=== PATIENT | female | born 1935 | race Caucasian/White ===

== ENCOUNTER → 2017-01-06 | Outpatient (CLI) | payer BC ==
[~2017-01-06] MED LIST: GADAVIST IV PRN
--- NOTE | 2017-01-06 13:59 | DIAGNOSTIC IMAGING REPORT ---
TWO VIEW CHEST CLINICAL HISTORY: Renal cell carcinoma. FINDINGS: PA and lateral chest radiographs are compared to study dated 07/10/2016. Correlation is made with chest CT dated 10/02/2014. The examination is degraded by large body habitus. The heart is enlarged and there is atherosclerotic calcification of the thoracic aorta. The pulmonary vasculature is noncongested. Chronic interstitial thickening is similar to previous. Linear atelectasis versus scarring is present at both lung bases. No airspace consolidation, large pleural effusion, or pneumothorax is seen. There is no radiographic evidence of pulmonary nodule. The skeletal structures are osteopenic. The bony thorax appears intact. IMPRESSION: Cardiomegaly with no acute cardiopulmonary abnormality Electronically signed by: Roberto Knight M.D. 01/06/2017 1:57 PM Dictated Date/Time: 01/06/2017 1:56 PM
--- NOTE | 2017-01-06 15:16 | DIAGNOSTIC IMAGING REPORT ---
MRI OF THE ABDOMEN COMBO CLINICAL HISTORY: Left renal cell carcinoma. COMPARISON STUDY: Abdominal MRI dated 12/25/2015. Abdominal CT dated 01/16/2014. TECHNIQUE: MRI of the abdomen is performed transverse T1 and T2-weighted sequences in the axial and coronal planes. Contrast enhanced sequences were acquired following the IV administration of 10.5 cc of Gadavist. Subtraction imaging was utilized. The examination is significantly degraded by large body habitus. FINDINGS: Lower chest: No pleural effusion is identified. The lung bases are not well-visualized. Liver: The liver is enlarged measuring 20 cm in length. There is diffuse drop in signal on the opposed phase images consistent with hepatic steatosis. Fatty sparing is suggested adjacent to gallbladder fossa. No intrahepatic biliary ductal dilatation is seen. The hepatic veins and portal veins are patent. Gallbladder: Unremarkable. Spleen: Normal as visualized. Pancreas: Atrophic and grossly unremarkable. Adrenal glands: Nodularity of the left adrenal gland is similar to previous. Kidneys: The kidneys are atrophic and without hydronephrosis. Multiple foci of cortical scarring are again seen involving the right kidney. The kidneys enhance symmetrically. There has been modest increase in size of an infiltrative mass lesion involving the upper pole and interpolar region of the left kidney. This measures approximately 9.5 x 9.5 x 5.5 cm in aggregate dimension. This mass lesion extends into the renal vein to within 3.5 cm of the IVC. No enhancing mass lesion is seen in the right kidney. Abdominal aorta: Normal in course and caliber. A focal dissection is identified within the abdominal aorta, best seen on axial image #47. Bowel: Visualized portions of the small bowel and colon show no evidence of obstruction. Peritoneum: There is no abdominal ascites. Lymphadenopathy: No upper abdominal or retroperitoneal lymphadenopathy is identified. Skeletal structures: No destructive bony lesion is seen. IMPRESSION: 1. Modest increase in size of an infiltrative mass lesion involving the left kidney consistent with renal cell carcinoma as compared to the 12/25/2015 examination. 2. 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 This comes to within 3.5 cm of the IVC. 3. No retroperitoneal lymphadenopathy is seen. 4. Multiple foci of cortical scarring are seen in the right kidney. No enhancing right renal lesion is identified. 5. A focal dissection is seen within the infrarenal abdominal aorta. 6. Hepatomegaly and hepatic steatosis. Electronically signed by: Roberto Knight M.D. 01/06/2017 3:14 PM Dictated Date/Time: 01/06/2017 3:02 PM
== END | disposition home or self-care (01) ==
LOC: C.MRI 13:18
PROVIDERS: ATTEND Urology
DX: C64.9 Malignant neoplasm of unspecified kidney, except renal pelvis (principal)